=== PATIENT | female | born 1990 | race African-American/Black ===

== ENCOUNTER 2016-12-19 16:51 | Emergency (ER) | payer BC ==
[2016-12-19] MEDS ORDERED: LORazepam 2 MG/ML MDV IVPUSH ONE (17:18)
[2016-12-19] MEDS ORDERED: Potassium Chloride 10% 20 MEQ/15 ML Soln 30 ML UD Cup PO ONE (18:15)
--- NOTE | 2016-12-19 18:27 | EDM.PDOC ---
ED HPI GENERAL MEDICAL PROBLEM - General Chief Complaint: Respiratory Problem Stated Complaint: SOB Time Seen by Provider: 12/19/16 16:59 Source of Information: Reports: Patient History Limitations: Reports: No Limitations - History of Present Illness INITIAL COMMENTS - FREE TEXT/NARRATIVE: The patient is a 26-year-old female who presents with chest tightness and shortness of breath. She states that the symptoms started just before she came in. She's had a prior episode that resolved and she did not come to the emergency department. She states that she felt like she could not catch her breath. Her breathing was very fast. She had chest tightness at that time. She also had tingling in her hands and her feet. She denies any recent injury. No recent illness. No cough. No pleuritic pain. No abdominal pain or vomiting. No lower extremity pain or swelling. She does take control pills. States that she's had a lot of recent stress, she does not want to elaborate. Dates that her OB doctor started the medication for anxiety couple of weeks ago but she didn't tolerate it so she stopped it. 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 Psychiatric History: Reports: Anxiety - Past Surgical History Female Surgical History: Reports: Section Social & Family History - Family History Family Medical History: Noncontributory - Tobacco Use Smoking Status *Q: Never Smoker Used Tobacco, but Quit: Yes Month Tobacco Last Used: 06/2015 Second Hand Smoke Exposure: No - Caffeine Use Caffeine Use: Reports: None - Recreational Drug Use Recreational Drug Use: No ED ROS GENERAL - Review of Systems Review Of Systems: See Below Constitutional: Reports: Fatigue HEENT: Reports: No Symptoms Respiratory: Reports: Shortness of Breath Cardiovascular: Reports: Chest Pain Endocrine: Reports: No Symptoms GI/Abdominal: Denies: Abdominal Pain : Reports: No Symptoms Musculoskeletal: Reports: No Symptoms Skin: Reports: No Symptoms Neurological: Reports: Paresthesia Psychiatric: Reports: Anxiety ED EXAM, GENERAL - Physical Exam Exam: See Below Exam Limited By: No Limitations General Appearance: Alert, Anxious, Moderate Distress, Other (Tearful) Eye Exam: Bilateral Eye: Normal Inspection Ears: Normal External Exam Nose: Normal Inspection Throat/Mouth: Normal Inspection, Normal Oropharynx, Normal Voice, No Airway Compromise Head: Atraumatic, Normocephalic Neck: Normal Inspection, Supple, Non-Tender, Full Range of Motion Respiratory/Chest: Lungs Clear, Normal Breath Sounds, No Accessory Muscle Use, Chest Non-Tender, Other (Tachypnea) Cardiovascular: Normal Peripheral Pulses, Regular Rate, Rhythm, No Murmur GI/Abdominal: Soft, Non-Tender, No Distention Extremities: Normal Inspection, Non-Tender, No Pedal Edema Neurological: Alert, Oriented, Normal Cognition, No Motor/Sensory Deficits Psychiatric: Anxious, Tearful Skin Exam: Warm, Dry, Intact, Normal Color, No Rash Course - Vital Signs Last Recorded V/S: Last Vital Signs Temp 36.9 C 12/19/16 16:59 Pulse 78 12/19/16 18:45 Resp 18 12/19/16 18:45 BP 128/54 L 12/19/16 18:45 Pulse Ox 99 12/19/16 18:45 - Orders/Labs/Meds Orders: Active Orders 24 hr Category Date Time Status Chest 2V [CR] Stat Exams 12/19/16 17:05 Taken Labs: Laboratory Tests 12/19/16 12/19/16 12/19/16 Range/Units 17:03 17:03 17:03 WBC 7.70 (3.98-10.04) K/mm3 RBC 4.45 (3.98-5.22) M/mm3 Hgb 12.5 (11.2-15.7) gm/L Hct 37.9 (34.1-44.9) % MCV 85.2 (79.4-94.8) fl MCH 28.1 (25.6-32.2) pg MCHC 33.0 (32.2-35.5) g/dl RDW Std Deviation 42.1 (36.4-46.3) fL Plt Count 240 (182-369) K/mm3 MPV 11.7 (9.4-12.3) fl Neut % (Auto) 69.3 (34.0-71.1) % Lymph % (Auto) 22.7 (19.3-51.7) % Crawford % (Auto) 7.5 (4.7-12.5) % Eos % (Auto) 0.1 L (0.7-5.8) Baso % (Auto) 0.1 (0.1-1.2) % Neut # (Auto) 5.33 (1.56-6.13) K/mm3 Lymph # (Auto) 1.75 (1.18-3.74) K/mm3 Crawford # (Auto) 0.58 H (0.24-0.36) K/mm3 Eos # (Auto) 0.01 L (0.04-0.36) K/mm3 Baso # (Auto) 0.01 (0.01-0.08) K/mm3 D-Dimer, Quantitative 0.27 (0.19-0.59) mg/L Sodium 142 (136-145) mEq/L Potassium 3.2 L (3.5-5.1) mEq/L Chloride 103 (98-107) mEq/L Carbon Dioxide 22 (21-32) mEq/L Anion Gap 20.2 H (5-15) BUN 12 (7-18) mg/dL Creatinine 1.1 H (0.55-1.02) mg/dL Est Cr Clr Drug Dosing 76.03 mL/min Estimated GFR (MDRD) > 60 (>60) mL/min BUN/Creatinine Ratio 10.9 L (14-18) Glucose 94 (74-106) mg/dL Calcium 9.8 (8.5-10.1) mg/dL Total Bilirubin 0.5 (0.2-1.0) mg/dL AST 23 (15-37) U/L ALT 25 (14-59) U/L Alkaline Phosphatase 86 (46-116) U/L Troponin I < 0.017 (0.00-0.056) ng/mL Total Protein 8.1 (6.4-8.2) g/dl Albumin 4.3 (3.4-5.0) g/dl Globulin 3.8 gm/dL Albumin/Globulin Ratio 1.1 (1-2) Meds: Medications Discontinued Medications Generic Name Dose Route Start Last Admin Trade Name Freq PRN Reason Stop Dose Admin Lorazepam 1 mg 12/19/16 17:18 12/19/16 17:22 Ativan IVPUSH 12/19/16 17:19 1 mg ONETIME ONE Administration Potassium Chloride 40 meq 12/19/16 18:15 Potassium Chloride PO 12/19/16 18:16 ONETIME ONE - Re-Assessments/Exams Free Text/Narrative Re-Assessment/Exam: 12/19/16 18:52 Normal sinus rhythm, no evidence of acute ischemia or arrhythmia. Chest x-ray is normal. Labs are also all normal. Patient was much improved after milligram of Ativan. Discussed with her privately, she states that she has been under a lot of emotional stress but does not want to provide further details. She does feel safe at home. She is here with her and baby and a friend. She does not have a general primary care doctor. Someone, I referred her to Dr. Gloria. We'll defer medication management to him. Discussed return precautions. Patient understood Departure - Departure Time of Disposition: 18:25 Disposition: Home, Self-Care 01 Clinical Impression: Shortness of breath, Anxiety - Discharge Information Instructions: Shortness of Breath, [id number] Referrals: Alejandra Murphy MD [Primary Care Provider] - Forms: ED Department Discharge Additional Instructions: 1. Follow up with Dr. Gloria as soon as possible, ideally tomorrow or . Call [phone] to schedule. 2. Return to the Emergency Department if you have chest pain, difficulty breathing, or any other concerning symptoms. - My Orders Last 24 Hours: My Active Orders 12/19/16 17:05 Chest 2V [CR] Stat - Assessment/Plan Last 24 Hours: My Active Orders 12/19/16 17:05 Chest 2V [CR] Stat
[2016-12-19 18:47] VITALS: BP 128/54
--- NOTE | 2016-12-20 12:16 | CR ---
Chest: Two views of the chest are obtained. Comparison: No previous study. Heart size and mediastinum are normal. Lungs are clear. Bony structures are unremarkable for the patient's age. Impression: 1. Nothing acute is identified on two-view chest x-ray. Diagnostic code #1
== END 2016-12-19 18:45 | disposition home or self-care (01) ==
LOC: JD.ED 16:51
DX: F41.9 Anxiety disorder, unspecified (principal); R06.02 Shortness of breath
CPT/HCPCS: 36415; 71020; 80053; 84484; 85025; 85379; 96374; 99284; J2060

== ENCOUNTER 2017-03-18 05:56 | Emergency (ER) | payer BC ==
[2017-03-18 06:11] VITALS: BP 137/65
--- NOTE | 2017-03-18 06:26 | EDM.PDOC ---
ED HPI GENERAL MEDICAL PROBLEM - General Chief Complaint: Eye Problems Stated Complaint: SWOLLEN EYE Time Seen by Provider: 03/18/17 06:14 Source of Information: Reports: Patient History Limitations: Reports: No Limitations - History of Present Illness INITIAL COMMENTS - FREE TEXT/NARRATIVE: This is a 27-year-old female. She woke this morning and noted her upper right eyelid was very swollen. She did not have any drainage out of her right eye does not have any lower eyelid swelling. She does remember rubbing her eyelids she is getting anything on it she doesn't use mascara or makeup. She was cooking last night but she does remember cooking putting her hands on her face even though she was using some spices. There is no burning to the eyelid is just swollen. She denies any other acute symptoms no cough no colds no ear pain no sore throat. 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 Psychiatric History: Reports: Anxiety - Past Surgical History Female Surgical History: Reports: Section Social & Family History - Family History Family Medical History: Noncontributory - Tobacco Use Smoking Status *Q: Never Smoker Used Tobacco, but Quit: Yes Month Tobacco Last Used: 06/2015 Second Hand Smoke Exposure: No - Caffeine Use Caffeine Use: Reports: Soda - Recreational Drug Use Recreational Drug Use: No ED ROS GENERAL - Review of Systems Review Of Systems: See Below Constitutional: Denies: Fever, Chills HEENT: Reports: Other (As per history of present illness) Respiratory: Reports: No Symptoms Cardiovascular: Reports: No Symptoms Endocrine: Reports: No Symptoms GI/Abdominal: Reports: No Symptoms : Reports: No Symptoms Musculoskeletal: Reports: No Symptoms Skin: Reports: Other (As per history of present illness) Neurological: Reports: No Symptoms Psychiatric: Reports: No Symptoms Hematologic/Lymphatic: Reports: No Symptoms ED EXAM GENERAL W FULL EYE - Physical Exam Exam: See Below Exam Limited By: No Limitations General Appearance: Alert, WD/WN, No Apparent Distress Eye Exam: Bilateral Eye: Other (Her vision is not changed, there is no drainage from her right eye and there is no sclera swelling, she has specific specific swelling of the upper eyelid but not the lower eyelid, there is no erythema there are no bite rod noted or insect bites, the forehead and the cheek are not affected) Eyelids: Bilateral: Other (As described above) Conjunctiva & Sclera: Bilateral: Other (As described above) Cornea Exam: Bilateral: Normal Appearance Extraocular Movements: Bilateral: Intact Pupils: Normal Accommodation Ears: Normal External Exam Nose: Normal Inspection Throat/Mouth: Normal Inspection, Normal Lips, Normal Voice Head: Normocephalic Neck: Supple Respiratory/Chest: No Respiratory Distress Back Exam: Full Range of Motion Extremities: Normal Inspection, Normal Range of Motion Neurological: Alert, Oriented Psychiatric: Normal Affect, Normal Mood Skin Exam: Warm, Dry Course - Vital Signs Last Recorded V/S: Last Vital Signs Temp 98.9 F 03/18/17 06:07 Pulse 70 03/18/17 06:07 Resp 16 03/18/17 06:07 BP 137/65 03/18/17 06:07 Pulse Ox 100 03/18/17 06:07 - Re-Assessments/Exams Free Text/Narrative Re-Assessment/Exam: 03/18/17 06:24 I spoke at length with the patient and her regarding the swelling of the eyelid being more than likely an allergic reaction though she might have a slight blepharitis without upper lid. I explained what a blepharitis was to them. I did offer her a shot of steroids or pills and she is chosen the pills. I explained to her that the pills can affect the fetus and she denies being that she has an infant. Departure - Departure Time of Disposition: 06:25 Disposition: Home, Self-Care 01 Condition: Good Clinical Impression: Swelling of right eyelid Blepharitis of eyelid of right eye Qualifiers: Blepharitis type: unspecified type Eyelid: upper Qualified Code(s): H01.001 - Unspecified blepharitis right upper eyelid - Discharge Information Prescriptions: Cephalexin [Keflex] 500 mg PO BID #10 capsule Prednisone [IJD: predniSONE] 40 mg PO WITHBREAKFAST #4 tab Referrals: Alejandra Murphy MD [Primary Care Provider] - Additional Instructions: Use the eye patch as desired, do not rub your eyelid since it will make it worse , use ice but cover it with a towel to the eyelid 20 minutes every hour to help shrink it down, take the prednisone every morning and also today when you get it for the next 4 days, take the Keflex which is the antibiotic for the next 5 days, if there is worsening of the swelling or you get drainage from your eye or the skin turned red and warm return to the ER for evaluation, follow-up with your family physician this week for recheck
== END 2017-03-18 06:41 | disposition home or self-care (01) ==
LOC: JD.ED 05:56
DX: H01.001 Unspecified blepharitis right upper eyelid (principal)
CPT/HCPCS: 99283